=== PATIENT | female | born 2005 | race Caucasian/White ===

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

== ENCOUNTER 2025-06-13 13:20 | Outpatient (CLI) | payer BC, SELFPAY ==
--- NOTE | ~2025-06-13 | US_ITS ---
EXAMINATION: US OB follow up DATE: 06/13/2025 13:46 INDICATION: Assess growth and presentation as well as amniotic fluid index during third trimest er . TECHNIQUE: Real-time ultrasound of the pelvis was performed. The interpreting radiologist was not pre sent for the study. COMPARISON: None. FINDINGS: There is a single living fetus in vertex presentation. The placenta is fundal and not low-lying. Fet al heart rate is 155 beats per minute (bpm). The amniotic fluid index is 11.3 cm, which is normal (5 th%-95%: 7.7-24.9 cm at 36 weeks estimated gestational age). The following biometric data were obtained: BPD: 9.1 cm -> 36 weeks 6 days Head circumference: 33.0 cm -> 37 weeks 4 days Abdominal circumference: 33.3 cm -> 37 weeks 1 days Femur length: 7.0 cm -> 35 weeks 5 days These measurements are concordant. Head circumference to abdominal circumference ratio: 0.99 (normal range 0.92-1.05). Estimated weight: 3042 g (+/-) 456 g or 6 lbs. 11 oz. (+/-) 16 oz. IMPRESSION: 1. Single living fetus in vertex presentation with heart rate of 155 bpm. 2. Gestational age by ultrasound of 36 weeks 6 day(s) +/- 2 week(s) 4 day(s) with ultrasound estimate d date of delivery (ZAID) of 07/05/2025. Estimated weight is 55th percentile by Hadlock criteria when 07/05/2025 is used as the ZAID. Please correlate with clinical information or earlier ultrasounds for most accurate ZAID. 3. Normal amniotic fluid index of 11.3 cm. Reviewed, dictated and finalized at location A. IMPRESSION: 1. Single living fetus in vertex presentation with heart rate of 155 bpm. 2. Gestational age by ultrasound of 36 weeks 6 day(s) +/- 2 week(s) 4 day(s) wi th ultrasound estimated date of delivery (ZAID) of 07/05/2025. Estimated we ight is 55th percentile by Hadlock criteria when 07/05/2025 is used as the ZAID. Please correlate with clinical information or earlier ultrasounds for most accu rate ZAID. 3. Normal amniotic fluid index of 11.3 cm.
== END 2025-06-13 13:21 | disposition home or self-care (01) ==
LOC: MICIMG 13:22
PROVIDERS: PCP Obstetrics & Gynecology; Visit Provider Obstetrics & Gynecology
DX: Z34.93 Encounter for supervision of normal pregnancy, unspecified, third trimester (principal); Z3A.36 36 weeks gestation of pregnancy
CPT/HCPCS: 76816

== ENCOUNTER 2025-06-28 16:20 | Observation (INO) | payer BC, SELFPAY ==
--- OUTSIDE RECORDS SUMMARY | 2025-06-28 18:27 | XMS_ITS | Clinical Summary ---
Author Organization [facility] Address [facility] [place] [address] Care Team Providers Care Inserter Operator Name Role Phone [facility] Primary Care Provid er Allergies No known active allergies Medications ondansetron (ZOFRAN-ODT) 4 MG disintegrating tablet Take 1 tablet (4 mg total) by mouth every 8 (eight) hours as needed for Nausea. 20 tablet 3 Active ondansetron (ZOFRAN-ODT) 4 MG disintegrating tablet Take 1 tablet (4 mg total) by mouth every 8 (eight) hours as needed for Nausea. 20 tablet 4 Active Active Problems Problem Noted Date Diagnosed Date Anxiety 07/25/2021 Family History Medical History Relation Comments bipolar Father Attention Deficit Mother Thyroid Disease Mother Relation Status Comments Brother Alive Father Alive Mother Alive Sister Alive Social History Tobacco Use Types Packs/Day Years Used Date Smoking Tobacco: Never Smokeless Tobacco: Never Tobacco Cessation:Counseling Given: Not Answered Alcohol Use Standard Drinks/Week Comments Yes 0 (1 standard drink = 0.6 oz pur e alcohol) weekly PHQ-2 Answer Date Recorded PHQ-2 Score - If the patient scores above 3, please move on to questions 3-9 6 07/25/2021 Comments No Sex and Gender Information Value Date Recorded Sex Assigned at Not on file 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 Gender Identity Not on file Sexual Orientation Not on file Last Filed Vital Signs Vital Sign Reading Time Taken Comments Blood Pressure 128/69 03/16/2024 2:27 PM CDT Pulse 62 03/16/2024 2:27 PM CDT Temperature 36.6 C (97.8 F) 03/16/2024 2:27 PM CDT Respiratory Rate 18 03/16/2024 2:27 PM CDT Oxygen Saturation 98% 03/16/2024 2:27 PM CDT Inhaled Oxygen Concentration - - Weight 63.5 kg (140 lb) 03/16/2024 2:27 PM CDT Height 170.2 cm (5' 7) 03/16/2024 2:27 PM CDT Body Mass Index 21.93 03/16/2024 2:27 PM CDT Plan of Treatment Health Maintenance Due Date Last Done Comments Annual Physical 2006 HPV Vaccines (1 - 3-dose series) 2018 Meningococcal B Vaccine (1 o f 2 - Standard) 2019 Hepatitis C 2021 DTaP, Tdap and Td Vaccines ( 1 - Tdap) 2022 Hepatitis B Vaccines (1 of 3 - 19+ 3-dose series) 2022 COVID-19 Vaccine (1 - 2023-2 5 season) 2024 PHQ-2 (Physician [place]) 11/09/2024 Cervical Cancer Screening Pa p Smear (Age 21 to 29) Every 3 Years 03/04/2025 03/04/2022, 03/04/2022, 10/14/2021 Cervical Cancer Screening 03/04/2025 Meningococcal Vaccine Aged Out 02/27/2014 No terrell josseline eligible based on patient's age to complete this topic Pneumococcal Vaccine: Pediatrics (0 to 5 Years) and At-Risk Patients (6 to 49 Years) Aged Out No longer eligible b ased on patient's age to complete this topic RSV Immunizations Under 20 Months Aged Out No longer eligible b ased on patient's age to complete this topic Insurance [facility] Care Teams Inserter Operator Relationship Specialty Start Date End Date Aniyah Abebe, [employer] [address] [place] [address] PCP - General Nurse Practitioner Family 01/07/23
--- OUTSIDE RECORDS SUMMARY | 2025-06-28 18:27 | XMS_ITS | Clinical Summary ---
Author Organization [facility] Address [address] [place] [address] Care Team Providers Care Fire Claims Adjuster Name Role Phone Jud Galeano MD Primary Care Provider Allergies No known active allergies Medications LORazepam (ATIVAN) 2 mg tablet Take 1 tablet (2 mg total) by mouth every 8 (eight) hours as needed for anxiety Active buprenorphine-n aloxone (SUBOXONE) 8-2 mg per filmIndications :Opioid Withdrawal Symptoms,opioid use disorder Place 1 Film under the tongue every morning for 2 doses 12 mg in the morning and 16 mg at night 2 Film 02/07/2025 Active buprenorphine-n aloxone (SUBOXONE) 4-1 mg per filmIndications :Opioid Withdrawal Symptoms,opioid use disorder Place 1 Film under the tongue every morning for 2 doses 12 mg in the morning and 16 mg at night 2 Film 02/07/2025 Active buprenorphine-n aloxone (SUBOXONE) 8-[address] 2 Film under the tongue nightly for 2 doses 12 mg in the morning and 16 mg at night 4 Film 02/07/2025 Active vit,ifeb28-bbad -folic (PRENATABS RX) tablet tablet Take 1 tablet by mouth daily 30 tablet 02/08/2025 Active prochlorperazin e (COMPAZINE) 5 mg tabletIndicatio ns:Nausea and Vomiting Take 1 tablet (5 mg total) by mouth every 8 (eight) hours as needed for nausea or vomiting for up to 7 days 20 tablet 02/07/2025 Active Active Problems Problem Noted Date Diagnosed Date Opioid dependence with opioid-induced disorder 0 02/05/2025 High risk , antepartum 02/05/2025 Overview (02/05/2025): 02/05/2025, 15:20 (Cecelia): 20-year-old at approximately 16 weeks gestation admitted for voluntary detoxification with an otherwise apparently uncomplicated . Ultrasound ordered I encouraged and affirmed the patient in her efforts to get clean, and stressed that the best long-term success involves adequate support and resources. I discussed with her the opportunity to get established with [facility] or another similar multidisciplinary cro that specializes in supporting women who or with an history of substance abuse, and explained that they can either be the primary managing obstetrical group or co manage with another provider of choice. The patient states that she is interested and motivated. Request sent to my staff to place the referral and the patient gave me permission to have our office notify Dr. Galeano as well. I communicated to the patient that all providers involved have a non judgemental approach and wish the best chances of success for her. The patient expressed her gratitude. We will continue to follow peripherally and make sure that Britni has appropriate follow-up upon discharge. Patellofemoral pain syndrome 01/31/2011 Hip disease 01/31/2011 Encounters Date Type Department Care Team Description 04/04/2025 Documentation [facility] Case Management [id number] [place] [address] Jud Hernandez from Last 3 Months Medical History Medical History Date Comments Reflux, vesicoureteral Social History Tobacco Use Types Packs/Day Years Used Date Smoking Tobacco: Never [facility] Utilities Answer Date Recorded In the past 12 months has TM, gas, oil, or water [employer] threatened to shut off services in your home? No 02/06/2025 Social Connection and Isolation Panel Answer Date Recorded In a typical week, how many times do you talk on the phone with family, friends, or neighbors? More than three times a week 02/06/2025 How often do you get togethe r with friends or relatives? More than three times a week 02/06/2025 How often do you attend chur or hoahaoism services? Never 02/06/2025 Do you belong to any clubs o r organizations such as christian groups, unions, fraternal or athletic groups, or school groups? No 02/06/2025 How often do you attend meet ings of the clubs or organizations you belong to? Never 02/06/2025 Are you , , di vorced, , never , or living with a partner? Never 02/06/2025 Overall Financial Resource Strain (CARDIA) Answe r Date Recorded How hard is it for you to pa y for the very basics like food, housing, medical care, and heating? Very hard 02/06/2025 Hunger Vital Sign Answer Date Recorded Within the past 12 months, y ou worried that your food would run out before you got the money to buy more. Sometimes true Within the past 12 months, t he food you bought just didn't last and you didn't have money to get more. Sometimes true PRAPARE - Transportation Answer Date Re corded In the past 12 months, has l ack of transportation kept you from medical appointments or from getting medications? No 01/09 In the past 12 months, has l ack of transportation kept you from meetings, work, or from getting things needed for daily living? No 02/06/2025 Housing Stability Vital Sign Answer Al e Recorded In the last 12 months, was t here a time when you were not able to pay the mortgage or rent on time? Yes 02/06/2025 In the past 12 months, how m any times have you moved where you were living? 1 02/06/2025 At any time in the past 12 m [facility], were you homeless or living in a assisted (including now)? No 02/06/2025 Personal Safety Answer Date Recorded Have you ever been in or are you currently in a harmful physical or emotional relationship or is someone making you feel afraid or unsafe? 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 Gender Identity Not on file Sexual Orientation Not on file Obstetrics History Last Filed Vital Signs Vital Sign Reading Time Taken Comments Blood Pressure 101/68 02/07/2025 11:27 AM CDT Pulse 91 02/07/2025 11:27 AM CDT Temperature 36.9 C (98.4 F) 02/07/2025 11:27 AM CDT Respiratory Rate 18 02/07/2025 11:27 AM CDT Oxygen Saturation 99% 02/07/2025 11:27 AM CDT Inhaled Oxygen Concentration - - Weight 59.9 kg (132 lb 1.6 oz) 02/05/2025 2:49 A M CDT Height 172.7 cm (5' 8) 02/05/2025 2:49 AM CDT Body Mass Index 20.09 02/05/2025 2:49 AM CDT Plan of Treatment Health Maintenance Due Date Last Done Comments Cervical Cancer Screening 2003 Depression Screening 2003 HPV Vaccines (1 - 3-dose series) 2018 Meningococcal B Vaccine (1 of 2 - Standard) 2019 Regular Well Visit/Exam 18-64 2021 DTaP/Tdap/Td Vaccine (6 - Td or Tdap) 02/07/2023 02/07/2013, 11/26/2007, 12/25/2005, Additional history exists Influenza Vaccine (#1) 2025 09/19/2020 Hepatitis B Screening Completed 11/26/2007 , 12/25/2005, 08/14/2005 Varicella Vaccines Completed 02/07/2013, 04/27/2008 Hepatitis C Screening Completed 02/05/2025 Pneumococcal vaccine <65 Aged Out No longer eligible based on patient's age to complete this topic Procedures Procedure Name Priority Date/Time Associated Diagnosis Comments HEPATITIS PANEL, ACUTE Routine 02/05/2025 7:29 AM CDT from Last 3 Months or Most Recently Relevant to Health Maintenance Results * Hepatitis panel, acute Blood (02/05/2025 7:29 AM CDT) Hep A IgM Nonreactive Nonreactive Comment: Interpretive Data: If Hep A IgM Ab is reported as Equivocal, a new sample should be drawn in two weeks for testing. Current interpretive data was last revised on 20. Hep B core IgM Nonreactive Nonreactive [facility] Comment: Interpretive Data If HepB Core IgM Ab is reported as Equivocal, a new sample should be drawn in two weeks for testing. Current interpretive data was last revised on 20. Hep C Ab Nonreactive Nonreactive [facility] Comment: Antibodies to HCV not detected. Does NOT exclude the possibility of recent exposure to HCV. Current interpretive data was last revised on 22 Interpretive Data Nonreactive: Antibodies to HCV not detected. Does NOT exclude the possibility of recent exposure to HCV. Equivocal: Equivocal for HCV antibodies. Supplemental molecular testing will be automatically performed to determine infection status in accordance with current CDC screening recommendations. Reactive: Positive for HCV antibodies. This may represent current or past HCV infection. Supplemental molecular testing will be automatically performed to determine current infection status in accordance with current CDC screening recommendations. Interpretive data was last revised on 2020. HepBsAg Nonreactive Nonreactive [facility] Blood 02/05/2025 7:29 AM CDT 02/05/2025 7:49 AM CDT Matt Yang DO LAB MICROBIOLOGY - GEN ERAL ORDERABLES Final Result [facility] [address] [facility] Department [place] [address] from Last 3 Months or Most Recently Relevant to Health Maintenance Insurance [facility] Advance Directives For more information, please contact: [phone] * Full Code (Latest Code Status on File) Date Activated Date Inactivated Comments 02/05/2025 3:08 AM 02/07/2025 7:45 PM Care Teams Fire Claims Adjuster Relationship Specialty Start Date End Date Jud Galeano MD PCP - General 05/17/18
[2025-06-28 18:35] VITALS: BMI 26.1
--- NOTE | 2025-06-28 18:35 | OBADM ---
This patient, Britni Strange, admitted to the OB room Labor/Delivery/Recovery 106 for observation. Patient/family oriented to hospital policies and general routines including ID bracelet, bed and alarms, visiting hours, pain management, procedures, bathroom and other care routines, personal items, smoking policy, room service/diet, and visiting hours. Patient/Family are encouraged to report perceived risks to care and to ask questions if they do not understand what they are told or what they should do.
--- NOTE | 2025-07-18 21:21 | PM.OBTRLD ---
OB - Triage/Final Diagnosis Visit Information Comments/Additional reasons for admission: I have assessed the risk for this patient, Britni Strange, and determined that she would benefit from observation care. Final Diagnosis (1) Abdominal cramping affecting : Code(s): O26.899 - Other specified related conditions, unspecified trimester; R10.9 - Unspecified abdominal pain Status: Acute
== END 2025-06-28 18:35 | disposition home or self-care (01) ==
PROVIDERS: Admitting Provider Obstetrics & Gynecology; PCP Obstetrics & Gynecology; Visit Provider Obstetrics & Gynecology
DX: O26.893 Other specified pregnancy related conditions, third trimester (principal); R10.9 Unspecified abdominal pain; Z3A.39 39 weeks gestation of pregnancy
CPT/HCPCS: G0378; G0379

== ENCOUNTER 2025-06-29 03:43 | Inpatient (IN) | payer BC, SELFPAY ==
[2025-06-29] VITALS (174 sets, daily range): BP systolic 107–173; BP diastolic 46–95; PULSE 72–144; RESP 16–18; TEMP 36.5–37.3; O2SAT 79–100; BMI 26.2
--- OUTSIDE RECORDS SUMMARY | 2025-06-29 03:59 | XMS_ITS | Clinical Summary ---
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 Care Teams Architectural Designer Relationship Specialty Start Date End Date Aniyah Abebe, MANAGER [employer] [address] [place] [address] PCP - General Nurse Practitioner Family 01/07/23
[2025-06-29] MEDS: LACTATED RINGERS 1,000 ML 125 ML IV CONT ×3 (04:00→08:58)
[2025-06-29 04:20] LABS: Hematocrit 35.5 % (37.0-47.0); Hemoglobin 11.2 g/dL (12.0-15.0); Immature Granulocyte Percent A 0.9 % (0-0.5); Lymphocytes Absolute Auto 0.98 K/mm3 (0.9-3.2); Mean Corpuscular HGB Conc 31.5 g/dl (32-36); Mean Corpuscular Hemoglobin 30.4 pg (26-34); Mean Corpuscular Volume 96.5 fl (80-100); Nucleated Red Blood Cells Absolute Auto 0.000 K/mm3 (0.0-0.012); Nucleated Red Blood Cells Perc 0.0 % (0.0-0.2); Platelet Count Result 180 k/mm3 (150-375); Red Blood Count 3.68 M/mm3 (4.2-5.4); White Blood Count 16.1 K/mm3 (4.5-10.0)
--- NOTE | 2025-06-29 04:57 | WPDANESEPPF ---
Anes - Initial Pre Proc Eval Procedure: labor epidural Date/Time: 06/29/25 04:37 Surgeon: Apolinar Galeano MD Pre Op Diagnosis: labor pain Patient Data Age: 20 Gender: F Height: 1.7 m Weight: 75.9 kg Last Vital Signs Pulse 108 H 06/29/25 04:56 BP 135/79 06/29/25 04:56 Pulse Ox 99 06/29/25 04:52 O2 Del Method Room Air 06/29/25 04:04 Allergies Allergy/AdvReac Type Severity Reaction Status Date / Time No Known Allergies Allergy Unverified 06/27/25 11:51 Home Medications ?Medication ?Instructions ?Recorded ?Confirmed ?Type buprenorphine 2 mg-naloxone 0.5 mg 1 tablet sublingual DAILY 05/22/25 06/27/25 History sublingual tablet prenat.vits,jessika,zig-iblp-saimx tablet PO 05/22/25 06/27/25 History sertraline 100 mg tablet 100 mg PO DAILY 05/22/25 06/27/25 History Laboratory Tests 06/29/25 04:15 WBC 16.1 H K/mm3 (4.5-10.0) RBC 3.68 L M/mm3 (4.2-5.4) Hgb 11.2 L g/dL (12.0-15.0) Hct 35.5 L % (37.0-47.0) MCV 96.5 fl (80-100) MCH 30.4 pg (26-34) MCHC 31.5 L g/dl (32-36) RDW 12.7 % (11.5-14.5) Plt Count 180 k/mm3 (150-375) MPV 12.2 H fl (7.4-10.4) Immature Gran % (Auto) 0.9 H % (0-0.5) Neut % (Auto) 88.3 H % (45.5-73.1) Lymph % (Auto) 6.1 L % (18.3-44.2) Mckenzie % (Auto) 4.5 % (2.6-8.5) Eos % (Auto) 0.0 % (0-4.4) Baso % (Auto) 0.2 % (0.2-1.2) Lymph # (Auto) 0.98 K/mm3 (0.9-3.2) Mckenzie # (Auto) 0.7 H K/mm3 (0.1-0.6) Eos # (Auto) 0.0 K/mm3 (0-0.3) Baso # (Auto) 0.0 K/mm3 (0.0-0.1) Abs Immat Gran (auto) 0.14 H K/mm3 (0.00-0.031) Absolute Neuts (auto) 14.2 H K/mm3 (1.3-6.7) Absolute Nucleated RBC 0.000 K/mm3 (0.0-0.012) Nucleated RBC % 0.0 % (0.0-0.2) Blood Type Pending Antibody Screen Pending Patient hx anesthesia problems: none Family hx anesthesia problems: none Results Review: All pre-operative results and documents have been reviewed as part of the pre-operative evaluation. [facility] Social History Social History Smoking status: Former smoker Tobacco type: e-cigarettes/vaping Smoking end date: 09/09/24 Lack of Transportation: No Lack of Food: Never True Current Housing: I Have Housing Concerned About Future Housing: No Difficulty Paying Gas/Electric Bills: No Difficulty Paying for Meds: No Currently Unemployed: No Education: High School Diploma/GED Difficulty w/ Childcare or Family Care: No Anes - Eval Final PreProcedure Day of Procedure 06/29/25 04:57 Heart: regular rate and rhythm Lungs: clear to auscultation and normal air movement Airway: Mallampati scale class 1 Neurological: alert and oriented ASA classification: II Anesthetic plan: proceed Anesthesia type and monitoring: regional epidural and standard monitoring Results Review: All pre-operative results and documents have been reviewed as part of the pre-operative evaluation. Informed Consent: The patient's anesthetic plan and its attendant risks and benefits were discussed with the patient/family/POA. Questions were solicited and answers provided to the satisfaction of the patient/family/POA.
[2025-06-29 05:13] LABS: Syphilis IgG/IgM Antibody Non-Reactive (Nonreactive)
[2025-06-29 05:56] LABS: Cannabinoid Screen Urine Negative (Negative)
--- NOTE | 2025-06-29 06:34 | LDADM ---
This patient, Britni Strange, was admitted to Labor/Delivery/Recovery 108 on 06/29/25 at 03:43. Plans for labor, pain management and were discussed with patient. Patient/family oriented to hospital policies and general routines including ID bracelet, bed and alarms, visiting hours, pain management, procedures, bathroom and other care routines, personal items, smoking policy, room service/diet and guest tray routines, infant security routines, and visiting hours. Patient/Family are encouraged to report perceived risks to care and to ask questions if they do not understand what they are told or what they should do. See [facility] for further documentation.
--- NOTE | 2025-06-29 06:43 | PC.NURSE ---
0345- RN privately discussed pts hx of substance abuse. Pt admits to previous opiate use but states she has only taken Suboxone this .
--- NOTE | 2025-06-29 08:08 | PC.NURSE ---
0801Hazel Masters from care coordination consulted with RN. Care coordination asked for a UDS on baby when baby is born. RN discussed patient history and medications patient is currently taking with care coordination, as well as patient only admitting to taking Suboxone.
--- NOTE | 2025-06-29 10:30 | P.HP_ITS ---
H&P: HPI History of Present Illness Date/Time: 06/29/25 10:30 Chief Complaint: Contractions Narrative: 20 y/o G1 at 39 1/7 weeks who presented with contractions. She thinks she may have had some leakage of clear fluid around 0330. complicated by Percocet usage; she had inpatient rehab, and is on Suboxone, but has also had some positive UDS recently. She is now comfortable with epidural. Review of Systems Review of Systems: All systems reviewed & are unremarkable except as noted in HPI and below [facility] Social History Social History Smoking status: Former smoker Tobacco type: e-cigarettes/vaping Smoking end date: 09/09/24 Substance use: current Other substance usage details: Pt states she took pills for her chronic neck pain. see Gorsh note Lack of Transportation: No Lack of Food: Never True Current Housing: I Have Housing Concerned About Future Housing: No Difficulty Paying Gas/Electric Bills: No Difficulty Paying for Meds: No Currently Unemployed: No Education: High School Diploma/GED Difficulty w/ Childcare or Family Care: No Spiritual care concerns: No Meds Home Medications and Allergies Home Medications ?Medication ?Instructions ?Recorded ?Confirmed ?Type buprenorphine 2 mg-naloxone 0.5 mg 1 tablet sublingual DAILY 05/22/25 06/27/25 History sublingual tablet prenat.vits,jessika,gyx-pmhv-pwtiq tablet PO 05/22/2506/09 History sertraline 100 mg tablet 100 mg PO DAILY 05/22/25 History ibuprofen 600 mg tablet 600 mg PO Q6H PRN Cramping # 20 tabs 07/01/25 Rx Allergies Allergy/AdvReac Type Severity Reaction Status Date / Time No Known Allergies Allergy Unverified 06/27/25 11:51 Vital Signs Vital Signs - 24 hr 06/29/25 03:51 06/29/25 03:56 06/29/25 04:04 Temperature Pulse Rate Blood Pressure Pulse Oximetry 100 100 Oxygen Delivery Room Air 06/29/25 04:12 06/29/25 04:17 06/29/25 04:22 Temperature Pulse Rate Blood Pressure Pulse Oximetry 100 98 100 Oxygen Delivery 06/29/25 04:25 06/29/25 04:27 06/29/25 04:31 Temperature Pulse Rate 104 H 108 H Blood Pressure 173/85 H 149/87 H Pulse Oximetry 100 Oxygen Delivery 06/29/25 04:32 06/29/25 04:34 06/29/25 04:36 Temperature Pulse Rate 101 H 99 Blood Pressure 143/84 H 142/86 H Pulse Oximetry 99 Oxygen Delivery 06/29/25 04:37 06/29/25 04:39 06/29/25 04:41 Temperature Pulse Rate 98 96 Blood Pressure 149/68 H 140/80 Pulse Oximetry 100 Oxygen Delivery 06/29/25 04:42 06/29/25 04:43 06/29/25 04:46 Temperature Pulse Rate 93 99 Blood Pressure 138/80 150/74 H Pulse Oximetry 99 Oxygen Delivery 06/29/25 04:47 06/29/25 04:51 06/29/25 04:52 Temperature Pulse Rate 94 Blood Pressure 131/77 Pulse Oximetry 98 99 Oxygen Delivery 06/29/25 04:53 06/29/25 04:56 06/29/25 04:57 Temperature Pulse Rate 98 108 H Blood Pressure 131/71 135/79 Pulse Oximetry 98 Oxygen Delivery 06/29/25 04:58 06/29/25 05:01 06/29/25 05:02 Temperature Pulse Rate 93 91 Blood Pressure 135/68 134/78 Pulse Oximetry 99 Oxygen Delivery 06/29/25 05:03 06/29/25 05:06 06/29/25 05:07 Temperature Pulse Rate 90 84 Blood Pressure 129/66 130/73 Pulse Oximetry 99 Oxygen Delivery 06/29/25 05:08 06/29/25 05:11 06/29/25 05:12 Temperature Pulse Rate 88 86 Blood Pressure 126/72 128/78 Pulse Oximetry 98 Oxygen Delivery 06/29/25 05:13 06/29/25 05:16 06/29/25 05:17 Temperature Pulse Rate 86 82 Blood Pressure 130/71 127/72 Pulse Oximetry 99 Oxygen Delivery 06/29/25 05:18 06/29/25 05:22 06/29/25 05:27 Temperature Pulse Rate 103 H Blood Pressure 141/90 H Pulse Oximetry 98 98 Oxygen Delivery 06/29/25 05:31 06/29/25 05:32 06/29/25 05:37 Temperature Pulse Rate 81 Blood Pressure 128/76 Pulse Oximetry 99 98 Oxygen Delivery 06/29/25 05:42 06/29/25 05:46 06/29/25 05:47 Temperature Pulse Rate 79 Blood Pressure 135/83 Pulse Oximetry 98 98 Oxygen Delivery 06/29/25 05:52 06/29/25 05:57 06/29/25 06:01 Temperature Pulse Rate 82 Blood Pressure 125/79 Pulse Oximetry 98 98 Oxygen Delivery 06/29/25 06:02 06/29/25 06:07 06/29/25 06:12 Temperature Pulse Rate Blood Pressure Pulse Oximetry 97 97 98 Oxygen Delivery 06/29/25 06:16 06/29/25 06:17 06/29/25 06:22 Temperature Pulse Rate 100 Blood Pressure 132/81 Pulse Oximetry 97 98 Oxygen Delivery 06/29/25 06:27 06/29/25 06:31 06/29/25 06:32 Temperature Pulse Rate 109 H Blood Pressure 129/95 H Pulse Oximetry 98 99 Oxygen Delivery 06/29/25 06:37 06/29/25 06:42 06/29/25 06:46 Temperature Pulse Rate 85 Blood Pressure 123/79 Pulse Oximetry 98 98 Oxygen Delivery 06/29/25 06:47 06/29/25 06:52 06/29/25 06:57 Temperature Pulse Rate Blood Pressure Pulse Oximetry 98 98 98 Oxygen Delivery 06/29/25 07:01 06/29/25 07:02 06/29/25 07:07 Temperature Pulse Rate 87 Blood Pressure 122/72 Pulse Oximetry 96 98 Oxygen Delivery 06/29/25 07:12 06/29/25 07:16 06/29/25 07:17 Temperature Pulse Rate 90 Blood Pressure 118/63 Pulse Oximetry 100 100 Oxygen Delivery 06/29/25 07:22 06/29/25 07:27 06/29/25 07:31 Temperature Pulse Rate 100 Blood Pressure 113/67 Pulse Oximetry 100 100 Oxygen Delivery 06/29/25 07:32 06/29/25 07:37 06/29/25 07:42 Temperature Pulse Rate Blood Pressure Pulse Oximetry 100 100 100 Oxygen Delivery 06/29/25 07:46 06/29/25 07:47 06/29/25 07:52 Temperature Pulse Rate 111 H Blood Pressure 112/63 Pulse Oximetry 100 100 Oxygen Delivery 06/29/25 07:57 06/29/25 08:01 06/29/25 08:02 Temperature Pulse Rate 98 Blood Pressure 123/82 Pulse Oximetry 100 100 Oxygen Delivery 06/29/25 08:07 06/29/25 08:12 06/29/25 08:16 Temperature Pulse Rate 91 Blood Pressure 111/72 Pulse Oximetry 100 99 Oxygen Delivery 06/29/25 08:17 06/29/25 08:22 06/29/25 08:27 Temperature Pulse Rate Blood Pressure Pulse Oximetry 98 98 97 Oxygen Delivery 06/29/25 08:31 06/29/25 08:32 06/29/25 08:37 Temperature Pulse Rate 90 Blood Pressure 107/61 Pulse Oximetry 97 97 Oxygen Delivery 06/29/25 08:41 06/29/25 08:46 06/29/25 08:51 Temperature Pulse Rate 92 Blood Pressure 110/60 Pulse Oximetry 97 96 99 Oxygen Delivery 06/29/25 08:58 06/29/25 09:01 06/29/25 09:03 Temperature Pulse Rate 95 Blood Pressure 115/65 Pulse Oximetry 97 100 Oxygen Delivery 06/29/25 09:08 06/29/25 09:13 06/29/25 09:16 Temperature Pulse Rate 109 H Blood Pressure 121/71 Pulse Oximetry 100 100 Oxygen Delivery 06/29/25 09:18 06/29/25 09:23 06/29/25 09:28 Temperature Pulse Rate Blood Pressure Pulse Oximetry 99 100 100 Oxygen Delivery 06/29/25 09:31 06/29/25 09:32 06/29/25 09:32 Temperature Pulse Rate 103 H Blood Pressure 123/77 Pulse Oximetry 79 L 80 L Oxygen Delivery 06/29/25 09:34 06/29/25 09:37 06/29/25 09:42 Temperature 97.8 F Pulse Rate Blood Pressure Pulse Oximetry 100 100 Oxygen Delivery 06/29/25 09:46 06/29/25 09:47 06/29/25 09:52 Temperature Pulse Rate 98 Blood Pressure 135/89 Pulse Oximetry 98 100 Oxygen Delivery 06/29/25 09:57 06/29/25 10:01 06/29/25 10:02 Temperature Pulse Rate 102 H Blood Pressure 133/82 Pulse Oximetry 100 100 Oxygen Delivery 06/29/25 10:07 06/29/25 10:12 06/29/25 10:16 Temperature Pulse Rate 101 H Blood Pressure 130/85 Pulse Oximetry 100 97 Oxygen Delivery 06/29/25 10:17 06/29/25 10:22 06/29/25 10:27 Temperature Pulse Rate Blood Pressure Pulse Oximetry 98 100 98 Oxygen Delivery Exam Const: Other: Well-developed, well-nourished female in no acute distress. Neck: Other: Neck: Trachea midline, no thyromegaly or masses. Resp: Other: Lungs: Normal respiratory effort. Clear to auscultation bilaterally. Cardio: Other: Heart: Regular rate and rhythm with normal S1-S2. GI: Other: ABD: Soft, nontender, nondistended, gravid. No guarding or rebound tenderness. No hepatosplenomegaly. NST reactive. TOCO: contractions every 3-5 min. : Other: Cervix: 5/90/-2. IUPC placed. Clear fluid noted. Back/Spine/Pelvis: Other: Back: No CVA tenderness. Skin: Other: Skin: No lesions, rashes or ulcers noted. Extrem: Other: Extremities: nontender with no edema Psych: Other: Mental status grossly normal, with normal mood and affect. H&P: Results Labs Labs: Short CBC 06/29/25 Range/Units 04:15 WBC 16.1 H (4.5-10.0) K/mm3 Hgb 11.2 L (12.0-15.0) g/dL Hct 35.5 L (37.0-47.0) % Plt Count 180 (150-375) k/mm3 Assessment and Plan Assessment and plan (1) Term : Code(s): Z34.90 - Encounter for supervision of normal , unspecified, unspecified trimester Status: Acute Assessment and Plan: A: IUP at term with labor. Substance use / suboxone treatment. P: Augment labor as needed. Anticipate . Peds aware of suboxone use. (2) Active labor at term: Status: Acute (3) History of substance abuse: Code(s): F19.11 - Other psychoactive substance abuse, in remission Status: Acute
[2025-06-29] MEDS: OXYTOCIN 30 UNITS/NS 500 ML 30 UNITS/500 ML BAG 999 UNITS IV CONT (11:03)
--- NOTE | 2025-06-29 11:17 | PM.OBPRVD ---
OB - Vaginal Delivery Note Procedure Delivery date: 07/02/25 Induction method: None Delivery augmentation: Pitocin Delivery monitor: External FHT, External Uterine and Internal FHT Route of delivery: Episiotomy description: None Laceration Description: Periurethral and Perineal - 2nd Degree Delivery repair: vicryl (3-0) Specimen: Yes (cord blood) Quantitative Blood Loss (ml): 280 Anesthesia type: Epidural Disposition: PACU Narrative: 20 y/o G1 at 39 1/7 weeks gestation who presented to the hospital with contractions. Labor was diagnosed. She had SROM with clear fluid. Oxytocin was administered intravenously for labor augmentation. She received an epidural for pain control. Her labor progressed and her cervix dilated completely. She pushed with good effort and delivered the infant's head to the perineum. A loose nuchal cord was splinted and the body delivered. The nose and mouth were bulb suctioned and the cord was reduced. After a delay, the cord was clamped and cut. The infant was handed off the field. Cord blood was collected. The placenta delivered spontaneously and was grossly normal in appearance. The usual 3 vessel cord was noted. A second degree midline perineal laceration was sustained. This was reapproximated using 3 0 Vicryl in the usual layered fashion. Bilateral periurethral lacerations were reapproximated using figure of eight sutures of the same material. Excellent hemostasis resulted as did excellent reapproximation of the normal anatomy. Needle and instrument counts were correct. The patient was taken to recovery room in stable condition. The infant went to the nursery in stable condition. I was present and scrubbed for the entire delivery. Baby Date of : 06/29/25 Time of : 11:00 Gestational Age by Date: 39 Infant gender: Male presentation: vertex position: Left Occiput Anterior Placenta delivery description: Spontaneous and Normal Configuration Cord Vessel Description: 3 Vessels, Nuchal Cord and Delayed Cord Clamping score one minute: 9 score five minutes: 9
[2025-06-29] MEDS: ACETAMINOPHEN 325 MG TABLET 650 MG PO ×2 (11:30→19:37)
[2025-06-29] MEDS: IBUPROFEN 600 MG TABLET PO ×2 (11:30→19:36)
[2025-06-29] MEDS: OXYTOCIN 30 UNITS/NS 500 ML 30 UNITS/500 ML BAG 125 UNITS IV CONT (11:37)
--- NOTE | 2025-06-29 14:22 | OBPPTRN ---
Patient transferred to post room #287 via wheelchair. Support person present. Oriented to unit, room, information board, rooming in, admission packet and security measures. Patient verbalizes understanding.
--- NOTE | 2025-06-29 16:55 | PC.NURSE ---
1655. Introductions were made, then consulted with patient to assess needs related to . Discussed with mother her plans to feed her and the experience so far. Encouraged mother to express any questions or concerns she has regarding feedings. Assisted mother latching to the right breast in the cross cradle position. Infant was not able to maintain an appropriate latch. required many attempts to latch and sleepy. Mom was encouraged to do S2S and try again in 20 min. Mother taught to listen for swallowing during feedings. Reviewed using the blue feeding sheet to record time and duration of feeding. Mother voiced understanding of the education shared, to call for assistance if the does not latch or if there is discomfort with . name/number on communication board. Reported to the Primary RN.? Advised her to call out for a latch check or if she needs assistance waking or positioning baby. Reviewed the blue feeding worksheet for required output and feeding at least 8-12 times every 24 hours. Resources provided for inpatient and outpatient services with the feeding sheet, mom/baby guide, and name/number written on the communication board. Mother voiced understanding of information and will call if there is a request for assistance. Reported to the Primary RN?
[2025-06-29] MEDS: SERTRALINE HCL 50 MG TABLET 100 MG PO (21:14)
--- NOTE | 2025-06-29 21:43 | P.PNOB_ITS ---
OB - PN: Subj Subjective Date/time seen: 06/30/25 0700 Interval history: She is having back pain. Patient comments: tolerating diet and other (Decreasing lochia.) baby status: doing well and nursing well [place] feeding status: breast and bottle feeding OB - PN: Obj Data Labs 06/30/25 04:08 Labs: Laboratory Results - last 24 hr 06/29/25 06/29/25 04:15 05:29 WBC 16.1 H RBC 3.68 L Hgb 11.2 L Hct 35.5 L MCV 96.5 MCH 30.4 MCHC 31.5 L RDW 12.7 Plt Count 180 MPV 12.2 H Immature Gran % (Auto) 0.9 H Neut % (Auto) 88.3 H Lymph % (Auto) 6.[address] [place] % (Auto) 4.5 Eos % (Auto) 0.0 Baso % (Auto) 0.2 Lymph # (Auto) 0.98 [place] # (Auto) 0.7 H Eos # (Auto) 0.0 Baso # (Auto) 0.0 Abs Immat Gran (auto) 0.14 H Absolute Neuts (auto) 14.2 H Absolute Nucleated RBC 0.000 Nucleated RBC % 0.0 Urine Opiates Screen Positive A Urine Methadone Screen Negative Ur Barbiturates Screen Negative Ur Phencyclidine Scrn Negative Ur Amphetamine Screen Negative U Benzodiazepines Scrn Positive A Urine Cocaine Screen Negative U Cannabinoids Screen Negative Syphilis IgG/IgM Ab Non-reactive Blood Type O Positive Antibody Screen Negative OB - PN A/P Assessment and Plan (1) Vaginal delivery: Code(s): O80 - Encounter for full-term uncomplicated delivery Status: Acute Plan day: 1 Plan: routine care Comments: Patient doing well. Routine care. Will obtain social service consult. Time Spent With Patient Time: Total time spent is greater than 50% in coordination of care (as documented) at patient's floor/unit and/or counseling patient: Exam 2 Psych: Affect: normal affect Other: Abd: fundus firm below umbilicus, nontender Perineum: healing Ext: nontender
[2025-06-30 00:10] VITALS: BP 137/68; PULSE 100; RESP 18; TEMP 36.4; O2SAT 98
[2025-06-30 04:10] VITALS: BP 137/68; PULSE 88; RESP 16; TEMP 36.7; O2SAT 98
[2025-06-30 05:11] LABS: Hematocrit 33.7 % (37.0-47.0); Hemoglobin 10.7 g/dL (12.0-15.0)
[2025-06-30] MEDS: IBUPROFEN 600 MG TABLET PO ×2 (08:05→15:49)
[2025-06-30] MEDS: ACETAMINOPHEN 325 MG TABLET 650 MG PO ×2 (08:05→15:50)
[2025-06-30] MEDS: MULTIVIT/MIN/PREN/FOL AC/IRON TABLET 1 TAB PO (08:05)
[2025-06-30 08:10] VITALS: BP 134/79; PULSE 80; RESP 16; TEMP 37.8; O2SAT 97
[2025-06-30] MEDS: ONDANSETRON HCL ODT 4 MG TABLET PO (10:21)
--- NOTE | 2025-06-30 10:42 | PHAR ---
HOME MED SUBOXONE 4MG/1MG SUBLINGUAL FILM; 2 FILMS PRESENT AND 1 EMPTY WRAPPER. VERIFIED BY PHARMACY.
--- NOTE | 2025-06-30 12:31 | PC.NURSE ---
Pt. given Tylenol and Ibuprofen for pain. Father of baby left for short time. baby to nursery to be fed by nurse. Baby returned to room. Mother very sleep and had difficulty staying awake to answer questions. Pt stated that FO was unable to bring meds in and requested meds to be ordered. Dr. Pacheco order Zofran but no other medications. Pt. stated she was fine and did not need other medications ordered. 3 doses of Bupernorphine brought in by another family member. Pt. states she took one dose of 4mg. Pt instructed not to take medications from home. Medications verified by pharmacy and in medication room. Pt. states she feels nausea and having hot flashes after taking dose. Zofran given. According to records pt. was ordered 8mg BID.
--- NOTE | 2025-06-30 12:58 | PCCCNOTE ---
Care Coordination. Patient referred to CC for history of substance use and positive UDS for opiates and benzos. Pt. tested positive for hydromorphone and hydrocodone 06/22. Met with pt. and FOB at bedside. FOB appeared upset and annoyed when mother would address him for questions or help. Baby was jittery and fussy during discussion. Pt. reports had addiction issues with percocet, but when she found out she was she started suboxone. She states seeing a provider Dr. Asaf Champagne (that we believe to be with [facility] [phone]) and who prescribed suboxone throughout the . Pt.'s pharmacy and insurance was contacted through pt.'s OB office, Melodie, and they both report that pt.'s last fill of the suboxone was 02/10/25 dose was for 16 days. Her last visit with the provider was March. This would be about 3-4 months ago. Baby's UDS was not his first urine and his UDS was not positive. Umb screening pending. Spoke with Ed in pharmacy and suboxone should not show up as an opiate nor should it show up as hydrocodone or hydromorphone. Spoke with Anastasia Amaral from [facility] hotline Intake ID# [id number] and she reports wont take a report at this time since baby's UDS is negative. She is aware that baby is experiencing withdrawal: sweaty, fussy, not eating well, jittery, temp., and increased respirations. She reports to call back when umb. cord is finalized. Spoke with mother about substance use treatments centers, WIC, and other resources. She reports having all necessary baby care items for infant. She plans to return home with FOB at [place]. She denies further CC needs. Provider reports will monitor baby 5-7 days for further withdrawal in hospital. Will continue to follow
--- NOTE | 2025-06-30 18:28 | PC.NURSE ---
1602. Breast pump provided due to not latching at the breast. Instructions given on cleaning, care, usage, that there should be no pain, pumping schedule for milk production, collection, and storage of human milk. Patient was assessed for correct placement, flange size, to pump for comfort and nipple stretching/stimulation for adequate milk production every 3 hours (8 times in 24 hours) 1-2 times at night. Parents are encouraged to record the pumping schedule on the feeding sheet.?Mother voiced understanding of the education shared along with mom/baby guide and the pump measurement, flange fit handout for additional resource information. Reported to the Primary RN.
[2025-06-30 20:00] VITALS: BP 126/78; PULSE 82; RESP 18; TEMP 36.9; O2SAT 99
[2025-06-30 23:30] VITALS: BP 139/89; PULSE 81; RESP 14; TEMP 36.9; O2SAT 100
[2025-07-01 04:35] VITALS: BP 139/89; PULSE 87; RESP 14; TEMP 37.1; O2SAT 100
[2025-07-01] MEDS: ACETAMINOPHEN 325 MG TABLET 650 MG PO (04:40)
[2025-07-01] MEDS: IBUPROFEN 600 MG TABLET PO (04:40)
[2025-07-01 07:59] VITALS: BP 135/74; PULSE 85; RESP 14; TEMP 36.6; O2SAT 95
[2025-07-01] MEDS: MULTIVIT/MIN/PREN/FOL AC/IRON TABLET 1 TAB PO (08:58)
[2025-07-01] MEDS: NALOXONE SUBLINGUAL (08:58)
[2025-07-01] MEDS: BUPRENORPHINE SUBLINGUAL (08:58)
[2025-07-01] MEDS: DOCUSATE SODIUM 100 MG CAPSULE PO (08:58)
[2025-07-01] MEDS: TETANUS,DIPHTHERIA,AC PERTUSSIS ADULT (0.5 ML) BOOSTRIX IM (09:03)
--- NOTE | 2025-07-01 12:54 | P.DS_ITS ---
DS: Admitting Diagnosis Discharge Date 07/01/2025 Admitting Diagnosis DS: Discharge Diagnosis Discharge Diagnosis (1) , delivered: Code(s): O80 - Encounter for full-term uncomplicated delivery Status: Acute OB - DS: Summary OB Procedures : None OB Procedures Intrapartum: Spontaneous Vag Delivery OB Procedures: : None Time Spent with Patient Time attestation: Total time spent providing and/or coordinating discharge services: Discharge Plan Discharge Discharging Clinician: Ramiro Rodriguez Patient Disposition: Home Activity: as tolerated Diet: as tolerated Patient Instructions: Antibiotic Form Patient Language: Burkinan Stand Alone Forms: General Discharge Information Follow-up/Referrals: Apolinar Galeano MD [Primary Care Provider, DIRECTOR OF SUSTAINABILITY] - 2 Weeks Discharge Medications: New ibuprofen 600 mg Tablet 600 mg PO Q6H PRN (Reason: Cramping) Qty: 20 0RF Continued sertraline 100 mg tablet 100 mg PO DAILY buprenorphine-naloxone 2-0.5 mg tablet, sublingual 1 tablet sublingual DAILY prenat.vits,jessika,gne-knan-izvgw Tablet PO Date of admission: 06/29/25 03:43 Primary Care Provider: Apolinar Galeano Admitting Provider: Apolinar Galeano Attending physician on admission: Apolinar Galeano Condition: Stable
[2025-07-03 11:24] VITALS: BP 114/74; PULSE 88; RESP 16; TEMP 36.8; O2SAT 100
== END 2025-07-01 13:30 | disposition home or self-care (01) | DRG 807 ==
LOC: ANHLDR 05:06 → ANHOB2 15:17
PROVIDERS: Obstetrics & Gynecology; Admitting Provider Obstetrics & Gynecology; PCP Obstetrics & Gynecology; Visit Provider Obstetrics & Gynecology
DX: O99.892 Other specified diseases and conditions complicating childbirth (principal); Z37.0 Single live birth; O69.81X0 Labor and delivery complicated by cord around neck, without compression, not applicable or unspecified; Z3A.39 39 weeks gestation of pregnancy; O71.82 Other specified trauma to perineum and vulva; O70.1 Second degree perineal laceration during delivery; F11.11 Opioid abuse, in remission; Z79.891 Long term (current) use of opiate analgesic
CPT/HCPCS: 36415; 80307; 85014; 85018; 85025; 86593; 86850; 86900; 86901; 90715; A9270; G0378; G0379; J2590; J2795; J7120